=== PATIENT | female | born 1995 | race Caucasian/White ===

== ENCOUNTER 2020-02-05 19:34 | Emergency (ER) | payer BC, OTHER ==
[~2020-02-05] VITALS: Ht 160 cm; Wt 73.0 kg
--- NOTE | 2020-02-05 20:20 | NUR ---
Patient presents to ER c/o LLQ abd pain which radiates to left lower back. Patient states it has been intermittent x3 weeks but has been constant the last four days. Patient denies N/V/D. Patient is in NAD. Respirations even and unlabored. Addendum: 02/05/20 at 2021 by [email or web address] Correction: patient pain is in RLQ and right low back.
[2020-02-05] MEDS ORDERED: ONDANSETRON 2MG/ML, 2ML ONE (20:24)
[2020-02-05] MEDS ORDERED: MORPHINE SULFATE 4 MG/ML, 1ML ONE (20:24)
[2020-02-05] MEDS ORDERED: SODIUM CHLORIDE 0.9% 1,000ML IVBOLUS ONE (20:30)
[2020-02-05] MEDS ORDERED: SODIUM CHLORIDE FLUSH 10ML SYR IVF ONE (20:30)
[2020-02-05] MEDS ORDERED: MORPHINE SULFATE 4 MG/ML, 1ML IVPush PRN (20:30)
[2020-02-05] MEDS ORDERED: ONDANSETRON 2MG/ML, 2ML IVPush ONE (20:30)
[2020-02-05 21:14] LABS: BASOPHILS # (AUTO) 0.07 x10^3/uL (0-0.1); BASOPHILS % (AUTO) 1 % (0-1); EOSINOPHILS # (AUTO) 0.19 x10^3/uL (0-0.4); EOSINOPHILS % (AUTO) 1 % (1-7); LYMPHOCYTES # (AUTO) 2.22 x10^3/uL (1-3.4); LYMPHOCYTES % (AUTO) 16 % (22-44); MD NO; MEAN CORPUSCULAR HEMOGLOBIN 25.8 pg (27.0-34.8); MEAN CORPUSCULAR HGB CONC 32.5 g/dL (32.4-35.8); MEAN CORPUSCULAR VOLUME 79.5 fL (80-100); MEAN PLATELET VOLUME 9.8 fL (7.4-10.4); MONOCYTES # (AUTO) 0.98 x10^3/uL (0.2-0.8); MONOCYTES % (AUTO) 7 % (2-9); NEUTROPHILS # (AUTO) 10.52 x10^3/uL (1.8-6.8); NEUTROPHILS % (AUTO) 75 % (42-75); PLATELET COUNT 318 x10^3/uL (130-400); RED BLOOD COUNT 4.91 x10^6/uL (3.82-5.3); RED CELL DISTRIBUTION WIDTH 16.7 % (9.6-15.2)
[2020-02-05 21:25] LABS: ALBUMIN 4.1 g/dL (3.4-5.0); ANION GAP 9 mmol/L (5-15); CALCIUM 8.9 mg/dL (8.5-10.1); CHLORIDE 108 mmol/L (98-107)
[2020-02-05 21:30] LABS: ALANINE AMINOTRANSFERASE 19 U/L (12-78); ALKALINE PHOSPHATASE 63 U/L (45-117); BILIRUBIN,TOTAL 0.5 mg/dL (0.2-1.0); CREATININE 0.78 mg/dL (0.55-1.02); TOTAL PROTEIN 8.2 g/dL (6.4-8.2)
[2020-02-05 22:14] LABS: MICROSCOPIC AUTO
[2020-02-05] MEDS ORDERED: HYDROcodone/APAP 5/325 TABLET PO ONE (22:30)
[2020-02-05] MEDS ORDERED: HYDROcodone/APAP 5/325 TABLET ONE (22:55)
[2020-02-05 23:05] VITALS: BP 117/72
--- NOTE | 2020-02-05 23:06 | NUR ---
Discharge instructions given. All questions and concerns addressed. Patient ambulatory with a steady gait. Belongings with patient.
[2020-02-05] MEDS ORDERED: OMNIPAQUE 350 MG/ML, 100ML BOTTLE ONE (23:09)
== END 2020-02-05 23:11 ==
LOC: ED 20:06
DX: D27.0 Benign neoplasm of right ovary (principal)
CPT/HCPCS: 36415; 74177; 80053; 81001; 83690; 84703; 85025; 87086; 96374; 96375; 99285; J2270; J2405; J7030; Q9967

== ENCOUNTER → 2020-02-13 | Outpatient (CLI) | payer OTHER | END | disposition home or self-care (01) | LOC: STAR 16:24 | PROVIDERS: ATTEND Surgery | DX: Z01.818 Encounter for other preprocedural examination (principal); Z11.59 Encounter for screening for other viral diseases | CPT/HCPCS: 36415; 87635 ==

== ENCOUNTER 2020-02-17 11:34 | Day surgery (SDC) | payer OTHER ==
[~2020-02-17] VITALS: Ht 160 cm; Wt 74.5 kg
[~2020-02-17 11:34] MED LIST: EPHEDRINE 50 MG/ML, 1ML IVPush PRN; HYDROmorphone 1 MG/ML, 1ML INJ IVPush PRN; LABETALOL 5MG/ML, 20ML IV PRN; MEPERIDINE/PF 25MG/0.5ML IVPush PRN; ONDANSETRON 2MG/ML, 2ML IVPush PRN; OXYcodone 5 MG/5 ML ORAL.SOL UDC PO PRN; PROMETHAZINE 25 MG/ML, 1ML IVPush PRN; hydrALAzine 20 MG/ML, 1ML IV PRN
[2020-02-17] MEDS ORDERED: FENTANYL PF 250 MCG/5ML ONE (11:36)
[2020-02-17] MEDS ORDERED: MIDAZOLAM 1 MG/ML, 2ML ONE (11:36)
[2020-02-17] MEDS ORDERED: CEFAZOLIN 1,000 MG ONE (11:39)
[2020-02-17] MEDS ORDERED: DEXAMETHASONE 4 MG/ML, 1ML ONE (11:39)
[2020-02-17] MEDS ORDERED: PROPOFOL 10 MG/ML, 20ML ONE (11:39)
[2020-02-17] MEDS ORDERED: ONDANSETRON 2MG/ML, 2ML ONE (11:40)
[2020-02-17] MEDS ORDERED: SUCCINYLCHOLINE 20 MG/ML, 10ML ONE (11:40)
[2020-02-17] MEDS ORDERED: ROCURONIUM 10MG/ML,5ML ONE (11:40)
[2020-02-17] MEDS ORDERED: LACTATED RINGERS 1,000 ML IV SCH (11:42)
[2020-02-17] MEDS ORDERED: HYDR-3240 PO (11:54)
[2020-02-17] MEDS ORDERED: IBUP-1223 PO (11:54)
[2020-02-17] MEDS ORDERED: ACETAMINOPHEN 500 MG TABLET PO ONE (12:00)
[2020-02-17] MEDS ORDERED: CHLORHEXIDINE 15 ML UDC MM ONE (12:00)
[2020-02-17 12:28] VITALS: BP 119/81
[2020-02-17] MEDS ORDERED: SUGAMMADEX 200 MG/2 ML IVPush ONE (13:27)
[2020-02-17] MEDS ORDERED: KETOROLAC 30 MG/1 ML ONE (13:27)
[2020-02-17] MEDS ORDERED: INTERCEED 3 X 4 INCH DRESSING ONE (14:17)
[2020-02-17] MEDS ORDERED: OXYcodone 5 MG/5 ML ORAL.SOL UDC ONE (14:54)
[2020-02-17] MEDS ORDERED: FENTANYL PF 100 MCG/2ML ONE (14:54)
[2020-02-17] MEDS: FENTANYL PF 100 MCG/2ML IV PRN ×2 (14:55→15:10)
[2020-02-17] MEDS ORDERED: PROMETHAZINE 25 MG/ML, 1ML ONE (15:09)
[2020-02-17] MEDS ORDERED: HYDROmorphone 1 MG/ML, 1ML INJ ONE (15:14)
== END 2020-02-17 16:50 | disposition home or self-care (01) ==
LOC: OUT 11:34
PROVIDERS: ATTEND Obstetrics & Gynecology
DX: D27.1 Benign neoplasm of left ovary (principal); D27.0 Benign neoplasm of right ovary; K66.1 Hemoperitoneum; F17.210 Nicotine dependence, cigarettes, uncomplicated; Z79.899 Other long term (current) drug therapy; Z82.49 Family history of ischemic heart disease and other diseases of the circulatory system; Z83.3 Family history of diabetes mellitus
CPT/HCPCS: 58925; 81025; 88304; 88305; J0330; J0690; J1100; J1170; J1885; J2250; J2405; J2550; J2704; J3010; J7120